=== PATIENT | male | born 2000 | race African-American/Black ===

== ENCOUNTER 2023-09-07 07:38 | Day surgery (SDC) | payer OTHER ==
[~2023-09-07 07:38] MED LIST: Sodium Chloride 0.9% 10 ML Syringe FLUSH PRN; Sodium Chloride 0.9% 10 ML Syringe FLUSH SCH
[2023-09-07] MEDS ORDERED: dexmedeTOMIDine HCl 200 MCG/2 ML SDV ONE (08:09)
[2023-09-07] MEDS ORDERED: Famotidine 20 MG/2 ML SDV ONE (08:18)
[2023-09-07] MEDS ORDERED: Propofol 200 MG/20 ML SDV ONE (08:52)
[2023-09-07] MEDS ORDERED: Lidocaine 1% 4 ML ONE (08:55)
[2023-09-07] MEDS: Lactated Ringers 1,000 ML IV SCH (09:19)
== END 2023-09-07 11:45 | disposition home or self-care (01) ==
LOC: JD.SDS 07:38
PROVIDERS: ATTEND Surgery
DX: K29.50 Unspecified chronic gastritis without bleeding (principal); K31.9 Disease of stomach and duodenum, unspecified; K21.9 Gastro-esophageal reflux disease without esophagitis; Z79.899 Other long term (current) drug therapy
CPT/HCPCS: 43239; J2704; J3490; J7120; 00731